=== PATIENT | male | born 1975 | race Caucasian/White ===

== ENCOUNTER 2019-04-08 14:40 | Emergency (ER) | payer MEDICAID ==
[~2019-04-08] VITALS: Ht 175.3 cm; Wt 67.0 kg
[~2019-04-08 14:40] MED LIST: AMOX1TAB12 PO; HYDR-3237 PO; NICO-486 TD
[2019-04-08] MEDS ORDERED: ATI (14:52)
[2019-04-08 15:28] LABS: BASOPHILS % (AUTO) 1 % (0-1); EOSINOPHILS # (AUTO) 0.63 x10^3/uL (0-0.4); EOSINOPHILS % (AUTO) 5 % (1-7); LYMPHOCYTES # (AUTO) 2.62 x10^3/uL (1-3.4); LYMPHOCYTES % (AUTO) 20 % (22-44); MD NO; MEAN CORPUSCULAR HGB CONC 32.2 g/dL (33.2-36.2); MEAN PLATELET VOLUME 6.6 fL (7.4-10.4); MONOCYTES # (AUTO) 0.96 x10^3/uL (0.2-0.8); MONOCYTES % (AUTO) 7 % (2-9); NEUTROPHILS # (AUTO) 8.67 x10^3/uL (1.8-6.8); NEUTROPHILS % (AUTO) 67 % (42-75); PLATELET COUNT 424 x10^3/uL (130-400); RED BLOOD COUNT 3.66 x10^6/uL (4.38-5.82); RED CELL DISTRIBUTION WIDTH 19.8 % (9.4-14.8)
--- NOTE | 2019-04-08 15:50 | NUR ---
PT STATING 'I WILL NOT GO BACK TO [facility]." PT MADE AWARE DR. JHA IS BEING PAGED AND DR. MARTIN WILL MAKE KAMAR AWARE OF PT'S DESIRE TO GO HOME. SPOUSE AT [facility] STATES PT WILL DO WHATEVER DR. GALVIN RECOMMENDS.
[2019-04-08 16:30] VITALS: BP 122/86
--- NOTE | 2019-04-08 16:42 | NUR ---
PT WATCHING TV IN [place]. STILL WAITING ON DR. GALVIN TO RETURN FIRST AND SECOND PAGE.
--- NOTE | 2019-04-08 17:52 | NUR ---
CARE FOR DC PROVIDED. REVIEWED DC INSTRUCTIONS WITH PT, UNDERSTANDING VERBALIZED. NO IV TO DC. PT LEFT VIA W/C WITH HIS .
== END 2019-04-08 17:55 | disposition home or self-care (01) ==
LOC: ED 17:06
DX: Z48.01 Encounter for change or removal of surgical wound dressing (principal); D72.829 Elevated white blood cell count, unspecified; F17.200 Nicotine dependence, unspecified, uncomplicated
CPT/HCPCS: 36415; 85025; 99283

== ENCOUNTER 2019-06-09 15:39 | Emergency (ER) | payer MEDICAID ==
[~2019-06-09] VITALS: Ht 175.3 cm; Wt 74.0 kg
[~2019-06-09 15:39] MED LIST changes: +ATI
[2019-06-09 16:06] VITALS: BP 122/86
--- NOTE | 2019-06-09 17:28 | NUR ---
IMPROVEMENT ADVISOR: CALLED FOR ROOM, NO ANSWER
--- NOTE | 2019-06-09 17:47 | NUR ---
FEED MILL OPERATOR: CALLED FOR ROOM, NO ANSWER
--- NOTE | 2019-06-09 18:10 | NUR ---
SR. LOGISTICS ANALYST: CALLED FOR ROOM, NO ANSWER
== END 2019-06-09 18:12 | disposition left against medical advice (07) ==
LOC: ED 17:45
DX: M79.661 Pain in right lower leg (principal); Z53.21 Procedure and treatment not carried out due to patient leaving prior to being seen by health care provider